=== PATIENT | female | born 1990 | race Caucasian/White ===

== ENCOUNTER 2024-01-20 11:50 | Emergency (ER) | payer MEDICAID ==
[~2024-01-20] VITALS: Ht 162.6 cm; Wt 60.3 kg
[2024-01-20 11:54] VITALS: BP 117/74; PULSE 95; RESP 16; TEMP 98.1; O2SAT 98
[2024-01-20] MEDS ORDERED: ERYT1OIN6 RIGHTEYE (13:37)
== END 2024-01-20 15:02 | disposition home or self-care (01) ==
LOC: ER 11:52
DX: H10.31 Unspecified acute conjunctivitis, right eye (principal); Z88.8 Allergy status to other drugs, medicaments and biological substances
CPT/HCPCS: 99283